=== PATIENT | male | born 1960 | race Asian ===

== ENCOUNTER 2022-12-30 11:10 | Emergency (ER) | payer OTHER ==
[~2022-12-30] VITALS: Ht 177.8 cm; Wt 82.3 kg
[2022-12-30 11:38] VITALS: BP 172/101
--- NOTE | 2022-12-30 11:40 | NUR ---
TO ER BED 5
--- NOTE | 2022-12-30 12:24 | NUR ---
Dr. Matthew evaluating patient at bedside.
--- NOTE | 2022-12-30 12:35 | NUR ---
52 y/o male bib self with c/o urinary retention x today. Patient has prostate cancer and surgery 2 days ago. Patient is noted with bloody urine. Medical History: Prostate Cancer NKDA
--- NOTE | 2022-12-30 12:58 | NUR ---
lab at bedside
[2022-12-30 13:23] LABS: BASOPHILS % (AUTO) 0.2 % (0.0-2.0); EOSINOPHILS % (AUTO) 0.8 % (0.0-4.0); HEMOGLOBIN 9.3 g/dL (12.0-18.0); LYMPHOCYTES # (AUTO) 0.9 K/uL (2.0-11.5); LYMPHOCYTES % (AUTO) 15.3 % (20.5-51.1); MEAN CORPUSCULAR HEMOGLOBIN 32 pg (27-31); MEAN CORPUSCULAR HGB CONC 34 g/dL (33-37); MEAN CORPUSCULAR VOLUME 92.8 fL (80-94); MONOCYTES # (AUTO) 0.5 K/uL (0.8-1.0); MONOCYTES % (AUTO) 8.6 % (1.7-9.3); NEUTROPHILS # (AUTO) 4.5 K/uL (1.8-7.7); NEUTROPHILS % (AUTO) 75.1 % (42.2-75.2); PLATELET COUNT (AUTO) 186 K/uL (140-450); RED BLOOD CELL COUNT(AUTO) 2.91 MIL/uL (4.20-6.10); RED CELL DISTRIBUTION WIDTH 13.4 % (11.6-13.7); WHITE BLOOD COUNT (AUTO) 6.1 K/uL (4.8-10.8)
[2022-12-30 13:36] LABS: ANION GAP 11.6 (8-16); CARBON DIOXIDE 29.9 mmol/L (21-32); CREATININE 0.8 mg/dL (0.6-1.3); POTASSIUM 3.5 mmol/L (3.5-5.1)
--- NOTE | 2022-12-30 15:10 | NUR ---
Patient discharged with v/s stable. Written and verbal after care instructions given. Patient alert, oriented and verbalized understanding of instructions. Ambulatory with steady gait. All questions addressed prior to discharge. ID band removed. Patient advised to follow up with PMD. Opportunity to ask questions provided and answered.
--- NOTE | 2022-12-30 15:11 | NUR ---
The patient's care was reviewed and supervised by Astrid Chaney, RN, RN.
== END 2022-12-30 15:10 | disposition home or self-care (01) ==
LOC: MED 11:10
DX: N39.0 Urinary tract infection, site not specified (principal); R31.9 Hematuria, unspecified
CPT/HCPCS: 36415; 51702; 80048; 85025; 99284